=== PATIENT | male | born 1980 | race Caucasian/White ===

== ENCOUNTER → 2018-07-24 17:41 | Outpatient (CLI) | payer OTHER | END | disposition home or self-care (01) | LOC: D.CT 17:41 | DX: R31.9 Hematuria, unspecified (principal) ==

== ENCOUNTER → 2020-07-29 11:29 | Day surgery (SDC) | payer OTHER | END | disposition home or self-care (01) | LOC: D.OPS 11:29 | PROVIDERS: ATTEND Surgery | DX: K21.9 Gastro-esophageal reflux disease without esophagitis (principal); K44.9 Diaphragmatic hernia without obstruction or gangrene ==

== ENCOUNTER 2020-08-14 06:00 | Day surgery (SDC) | payer OTHER ==
[2020-08-12 09:18] LABS: BASOPHILS 0.3 % (0-2); EOSINOPHILS 5.2 % (0-7); HEMATOCRIT 47.2 % (42.0-54.0); HEMOGLOBIN 15.8 g/dL (13.5-17.5); IMMATURE GRANULOCYTES 0.1 % (0-5); LYMPHOCYTES 20.9 % (15-50); MCH 30.9 pg (26.0-34.0); MCHC 33.5 g/dL (31.0-37.0); MCV 92.4 fL (80.0-100.0); MEAN PLATELET VOLUME 9.3 fL (7.4-10.4); MONOCYTES 13.3 % (2-11); NEUTROPHILS 60.2 % (40-80); PLATELET COUNT 333 10x3/uL (130-400); RBC 5.11 10x6/uL (4.20-6.10); RDW 12.9 % (11.5-14.5); WBC 6.9 10x3/uL (4.8-10.8)
[2020-08-12 09:22] LABS: CALC OSMOLALITY 278 mosm/kg (275-300); CALCIUM 9.4 mg/dL (8.5-10.1); CARBON DIOXIDE 30.8 mmol/L (21.0-32.0); CHLORIDE - SERUM 105 mmol/L (98-107); CREATININE - SERUM 1.1 mg/dL (0.6-1.3); GLUCOSE 83 mg/dL (74-106); POTASSIUM - SERUM 4.3 mmol/L (3.5-5.1); SODIUM 140 mmol/L (136-145); UREA NITROGEN 16 mg/dL (7-18); eGFR NON AFRICAN AMERICAN 78 mL/min (90-120)
[~2020-08-14] VITALS: Ht 180.3 cm; Wt 110.7 kg
[~2020-08-14 06:00] MED LIST: PROTONIX40 MG PO
[2020-08-14] MEDS ORDERED: FLUTICASONE PRO16 GM INH (06:46)
[2020-08-14 06:52] VITALS: BP 129/81; Ht 180.3 cm; Wt 110.7 kg
[2020-08-14 11:43] VITALS: BP 123/69
--- NOTE | 2020-08-14 12:05 | NUR ---
PT JUST ARRIVED TO ROOM 2210 FROM SURGERY EASILY TO AROUSED WHEN NAME IS CALLED. RESP EVEN AND UNLABORED WITH O2 IN USE AT THIS TIME VIA NC. C/O ABD PAIN RATING 3/10 AT THIS TIME. LAP SITES NOTED TO ABD X 5. AND C/L IN REACH AT BEDSIDE.
[2020-08-14] MEDS ORDERED: HYDROCODON-ACE1 EA10 PO (13:21)
[2020-08-14] MEDS ORDERED: REGLAN10 MG PO (13:22)
--- NOTE | 2020-08-14 19:10 | NUR ---
RECEIVED REPORT, A&OX4, AT BEDSIDE, CALL LIGHT IN REACH, BED LOWEST POSITION, IV PATENT, STATES MOUTH IS DRY GAVE GLYCERIN SWABS AND MOUTH MOISTURIZER, LAP SITES CDI
[2020-08-14 20:00] VITALS: BP 118/72
--- NOTE | 2020-08-14 23:54 | NUR ---
I have reviewed this patient and I concur with the Shift Assessment completed by the Licensed Practical Nurse today this shift.
[2020-08-15 04:00] VITALS: BP 125/75
--- NOTE | 2020-08-15 05:58 | NUR ---
GAVE PT I.S. PT O2 SAT WAS 89%, EXPLAINED HOW TO USE, PT DEMONSTRATED PROPER USE
[2020-08-15 07:38] LABS: CALC OSMOLALITY 274 mosm/kg (275-300); CALCIUM 8.9 mg/dL (8.5-10.1); CARBON DIOXIDE 18.1 mmol/L (21.0-32.0); CHLORIDE - SERUM 103 mmol/L (98-107); CREATININE - SERUM 0.8 mg/dL (0.6-1.3); GLUCOSE 104 mg/dL (74-106); POTASSIUM - SERUM 4.4 mmol/L (3.5-5.1); SODIUM 137 mmol/L (136-145); UREA NITROGEN 15 mg/dL (7-18); eGFR NON AFRICAN AMERICAN > 90 mL/min (90-120)
--- NOTE | 2020-08-15 08:13 | NUR ---
RESTING IN BED, NO DISTRESS NOTED, IV INFUSING, DIESEL INSPECTOR IN PLACE, IN ROOM, CONT TO MONITOR PAIN AND INTAKE
[2020-08-15 09:21] VITALS: BP 134/83
--- NOTE | 2020-08-15 09:31 | NUR ---
PATIENT ON INHALER AND REGLAN AT HOME. ORDER TO RESTART HOME MEDS. ALREADY RECIEVING IV REGLAN, AND INHALER NOT GIVEN HERE. WILL HAVE TO USE OWN IF HAS.
[2020-08-15 09:56] LABS: BASOPHILS 0.2 % (0-2); EOSINOPHILS 0.6 % (0-7); HEMATOCRIT 44.7 % (42.0-54.0); HEMOGLOBIN 14.9 g/dL (13.5-17.5); IMMATURE GRANULOCYTES 0.2 % (0-5); LYMPHOCYTES 11.1 % (15-50); MCH 30.8 pg (26.0-34.0); MCHC 33.3 g/dL (31.0-37.0); MCV 92.4 fL (80.0-100.0); MEAN PLATELET VOLUME 9.7 fL (7.4-10.4); MONOCYTES 9.3 % (2-11); NEUTROPHILS 78.6 % (40-80); PLATELET COUNT 290 10x3/uL (130-400); RBC 4.84 10x6/uL (4.20-6.10); RDW 13.5 % (11.5-14.5); WBC 12.4 10x3/uL (4.8-10.8)
--- NOTE | 2020-08-15 10:17 | NUR ---
DC SWATCHER AND FLUIDS, PROVIDED CL LIQ, CONT TO MONITOR
[2020-08-15 14:25] VITALS: BP 130/88
--- NOTE | 2020-08-15 15:29 | NUR ---
REC OK FROM DR FITZGERALD TO DC PT HOME, RX FOR NORCO PROVIDED, IV REMOVED, TIP INTACT
--- NOTE | 2020-08-15 15:52 | NUR ---
TAKEN FROM HOSPITAL PER W/C
--- NOTE | 2020-08-17 14:09 | OP ---
PATIENT NAME: CELESTE LORD MEDICAL RECORD: [id number] :78 LOCATION:D.OPS ADMISSION DATE: SURGEON: RICHARD WOO MD DATE OF OPERATION: 08/14/2020 PREOPERATIVE DIAGNOSES: 1. GERD. 2. Hiatal hernia. 3. Pisano esophagus. 4. Morbid obesity. POSTOPERATIVE DIAGNOSES: 1. GERD. 2. Hiatal hernia. 3. Pisano esophagus. 4. Morbid obesity. PROCEDURE: Laparoscopic Darcie with hiatal hernia repair. SURGEON: Richard Woo MD REPORT OF PROCEDURE: The patient's abdomen was prepped and draped in sterile fashion. A Veress needle was inserted in the left upper quadrant and the abdomen was insufflated. An 11 mm Visiport trocar was inserted in the midline just above the umbilicus. I can at this point see the Veress needle and there was no sign of any injury to bowel or surrounding structures. An 11 mm trocar was then placed in the left subcostal region, a 5 mm trocar was placed in the epigastrium, a 5 mm trocar was placed in the right lateral abdomen, and a final 5 mm trocar was placed in the left lateral abdomen. A liver retractor was inserted and the left lobe of the liver was elevated. We began by taking down the lesser omentum using Harmonic scalpel. We continued our dissection up to the right side of the right emir. There was a lot of fatty tissue, which made dissection difficult, so at this point I went over to the greater curvature of the stomach and began taking down the short gastrics using Harmonic scalpel. As we took these down, there was noted to be a lot of fatty tissue present in the left upper quadrant. I eventually had to use an Endoloop to pull this tissue down out of our way. Once we did this, then I was able to see more clearly and was able to take down these adhesions of the greater curvature of the stomach off of the patient's spleen and diaphragmatic hiatus. We eventually were able to dissect into the diaphragmatic hiatus and penetrate into the thoracic cavity. We released all the adhesions around the esophagus at this point and had a 360-degree inspection of this. We took down the final adhesions from the right side of the emir and at this point had full visualization and the stomach and distal esophagus easily rested in the abdomen without manipulation. A large clump of fatty tissue was removed from the fatty pad on the anterior aspect of the GE junction. This made visualization of the GE junction more routine. The esophageal hiatus was then reapproximated with interrupted 0 Polydeks times 3. We then performed a 360-degree posterior wrap of the fundus of the stomach around the distal esophagus. We did this using interrupted 0 Polydeks times 3 with the top and the bottom suture incorporating a bite of the esophagus. The wrap appeared to be in good position and did not appear to be under much tension. We irrigated out the abdomen and assured there was no sign of any active bleeding. The liver retractor was removed. The ports and insufflation were removed after the 11 mm trocar site fascias have been closed with 0 Vicryl using a Abbe-Enrico suture passer device. We infused a total of 10 mL of OPERATIVE REPORT [id number] CELESTE LORD 0.25% Marcaine with epinephrine into the surrounding tissues and then closed the skin incisions with subcutaneous 5-0 Monocryl. COMPLICATIONS: None. CONDITION: Stable. ANESTHESIA: General endotracheal and local. BLOOD LOSS: Minimal. NTS:[id number] Voice Confirmation ID: [id number] DOCUMENT ID: [id number] RICHARD WOO MD at 1409 CC: ZAID GLASER DO [id number] DICTATION DATE: 08/14/20 1113 ENTERPRISE APPLICATION ARCHITECT: 08/14/201910 [facility] 08/15/20 [facility] [address] [place] [address]
== END 2020-08-15 16:02 | disposition home or self-care (01) ==
LOC: D.OPS 06:00 → D.MS 11:28 → D.OPS 08-15 16:02
PROVIDERS: ATTEND Surgery
DX: K21.00 Gastro-esophageal reflux disease with esophagitis, without bleeding (principal); K44.9 Diaphragmatic hernia without obstruction or gangrene; E66.9 Obesity, unspecified; E66.01 Morbid (severe) obesity due to excess calories; K22.70 Barrett's esophagus without dysplasia